=== PATIENT | male | born 1970 | race Caucasian/White ===

== ENCOUNTER → 2021-03-25 | Outpatient (CLI) | payer OTHER ==
--- NOTE | 2021-03-25 12:40 | Diagnostic Imaging Report ---
INDICATION: Chronic back pain. FINDINGS: 3 views of the lumbosacral spine shows normal height and alignment of the vertebral bodies. There is mild disc space narrowing at L4-L5. There is disc space narrowing and spondylosis at L5-S1. There are degenerated facets most pronounced at L5. There is no fracture. IMPRESSION: There are degenerative changes in the lower lumbar spine with no acute abnormality seen. Dictated by: Dictated on workstation # [id number]
--- NOTE | 2021-03-25 12:42 | Diagnostic Imaging Report ---
INDICATION: Chronic bilateral knee pain. Two views of each knee were obtained which show no fracture, dislocation or other abnormality. IMPRESSION: Normal bilateral knees. Dictated by: Dictated on workstation # [id number]
== END ==
LOC: RAD 09:59
PROVIDERS: ATTEND Anesthesiology Pain Medicine
DX: Z02.71 Encounter for disability determination (principal); M47.816 Spondylosis without myelopathy or radiculopathy, lumbar region; M25.562 Pain in left knee; M25.561 Pain in right knee
CPT/HCPCS: 72100